=== PATIENT | female | born 1975 | race African-American/Black ===

== ENCOUNTER 2017-04-23 04:45 | Emergency (ER) | payer MEDICAID ==
[~2017-04-23] VITALS: Ht 170.2 cm; Wt 76.0 kg
[2017-04-23] VITALS (13 sets, daily range): BP systolic 142–166; BP diastolic 89–109
[~2017-04-23 04:45] MED LIST: AMLO10TA80 PO; CALCIUM ACETATE PO; DOCU-138 PO; FERR-63 PO; LORA10TA7 PO; METO-539 PO; NITR100C PO; SEVE800T8 PO
[2017-04-23 07:13] LABS: BASOPHILS % 0.6 % (0.0-2.0); HEMATOCRIT. 30.2 % (36.0-48.0); HEMOGLOBIN. 9.9 g/dL (12.0-16.0); LYMPHOCYTES % 40.6 % (20.0-50.0); MEAN CORPUSCULAR HEMOGLOBIN 29.6 pg (28.0-32.0); MEAN CORPUSCULAR VOLUME 90.4 fL (81.0-99.0); MEAN PLATELET VOLUME 8.5 fl (7.4-10.4); MONOCYTES % 8.3 % (2.0-8.0); NEUTROPHILS % 47.5 % (40.0-76.0); PLATELET 243 x1000/uL (130-400); RED BLOOD CELL COUNT 3.34 mill/uL (4.2-5.4); RED CELL DISTRIBUTION WIDTH 15.7 % (11.6-14.6)
[2017-04-23 07:17] LABS: PARTIAL THROMBOPLASTIN TIME 67.6 sec (23.4-31.0); PROTHROMBIN TIME 10.4 sec (9.4-11.6)
[2017-04-23] MEDS ORDERED: CEFAZOLIN 1000MG PREMIX 50 ML IV ONE (08:00)
[2017-04-23] MEDS ORDERED: FENTANYL CITRATE/PF 50MCG/ML 2ML VIAL ONE (09:06)
[2017-04-23] MEDS ORDERED: SODIUM BICARBONATE 4% (2.4MEQ) 5ML VIAL IV ONE (09:06)
[2017-04-23] MEDS ORDERED: FENTANYL CITRATE/PF 50MCG/ML 2ML VIAL IV SCH (09:45)
== END 2017-04-23 10:47 | disposition home or self-care (01) ==
LOC: ER 08:05
DX: T82.41XA Breakdown (mechanical) of vascular dialysis catheter, initial encounter (principal); I12.0 Hypertensive chronic kidney disease with stage 5 chronic kidney disease or end stage renal disease; N18.6 End stage renal disease; Z99.2 Dependence on renal dialysis; Y82.8 Other medical devices associated with adverse incidents; Y92.098 Other place in other non-institutional residence as the place of occurrence of the external cause
CPT/HCPCS: 36415; 36581; 71045; 77001; 80048; 81025; 85025; 85610; 85730; 86850; 86900; 86901; 93005; 96365; 96375; 99285; C1725; C1750; C1769; J0690; J1642; J3010; J3490; Z7610

== ENCOUNTER 2017-07-25 09:11 | Emergency (ER) | payer MEDICAID ==
[~2017-07-25] VITALS: Ht 170.2 cm; Wt 74.6 kg
[2017-07-25] MEDS ORDERED: HYDROCODONE/ACETAMINOPHEN 5/325MG TABLET PO ONE (10:15)
[2017-07-25 10:44] VITALS: BP 128/94
== END 2017-07-25 11:29 | disposition home or self-care (01) ==
LOC: ER 09:34
DX: L08.9 Local infection of the skin and subcutaneous tissue, unspecified (principal); I12.0 Hypertensive chronic kidney disease with stage 5 chronic kidney disease or end stage renal disease; N18.6 End stage renal disease; F17.200 Nicotine dependence, unspecified, uncomplicated; Z99.2 Dependence on renal dialysis
CPT/HCPCS: 73140; 99284; 99285

== ENCOUNTER 2017-08-24 09:10 | Emergency (ER) | payer MEDICAID ==
[~2017-08-24] VITALS: Ht 170.2 cm; Wt 76.0 kg
[2017-08-24] MEDS ORDERED: ACETAMINOPHEN WITH CODEINE 300/30MG TABLET PO STA (09:31)
[2017-08-24 09:53] LABS: BASOPHILS % 0.8 % (0.0-2.0); EOSINOPHILS % 1.9 % (0.0-5.0); HEMATOCRIT. 36.2 % (36.0-48.0); HEMOGLOBIN. 11.8 g/dL (12.0-16.0); LYMPHOCYTES % 36.4 % (20.0-50.0); MEAN CORPUSCULAR HEMOGLOBIN 28.4 pg (28.0-32.0); MEAN CORPUSCULAR VOLUME 86.9 fL (81.0-99.0); MEAN PLATELET VOLUME 7.7 fl (7.4-10.4); MONOCYTES % 7.5 % (2.0-8.0); NEUTROPHILS % 53.4 % (40.0-76.0); PLATELET 259 x1000/uL (130-400); RED BLOOD CELL COUNT 4.17 mill/uL (4.2-5.4); RED CELL DISTRIBUTION WIDTH 15.3 % (11.6-14.6)
[2017-08-24 09:58] LABS: CHLORIDE 99 mEq/L (98-107)
[2017-08-24 10:00] LABS: PROTHROMBIN TIME 10.4 sec (9.4-11.6)
[2017-08-24 10:30] VITALS: BP 144/85
== END 2017-08-24 10:42 | disposition home or self-care (01) ==
LOC: ER 09:10
DX: T82.49XA Other complication of vascular dialysis catheter, initial encounter (principal); I12.0 Hypertensive chronic kidney disease with stage 5 chronic kidney disease or end stage renal disease; N18.6 End stage renal disease; Z99.2 Dependence on renal dialysis; Z90.49 Acquired absence of other specified parts of digestive tract; Z98.890 Other specified postprocedural states; Y84.1 Kidney dialysis as the cause of abnormal reaction of the patient, or of later complication, without mention of misadventure at the time of the procedure; Y92.89 Other specified places as the place of occurrence of the external cause
CPT/HCPCS: 36415; 80053; 85025; 85610; 99284; Z7610

== ENCOUNTER 2017-09-21 09:44 | Emergency (ER) | payer MEDICAID ==
[~2017-09-21] VITALS: Ht 170.2 cm; Wt 76.0 kg
[~2017-09-21 09:44] MED LIST changes: -NITR100C PO
[2017-09-21] MEDS ORDERED: IBUPROFEN 600MG TABLET PO ONE (12:45)
[2017-09-21] MEDS ORDERED: ACETAMINOPHEN 500MG TABLET PO ONE (12:45)
[2017-09-21 13:52] VITALS: BP 149/89
== END 2017-09-21 14:07 | disposition home or self-care (01) ==
LOC: ER 12:01
DX: M25.561 Pain in right knee (principal); I12.0 Hypertensive chronic kidney disease with stage 5 chronic kidney disease or end stage renal disease; N18.6 End stage renal disease; Z99.2 Dependence on renal dialysis; Z87.828 Personal history of other (healed) physical injury and trauma; Z79.899 Other long term (current) drug therapy
CPT/HCPCS: 73562; 81025; 99284

== ENCOUNTER 2017-11-03 21:20 | Emergency (ER) | payer MEDICAID ==
[~2017-11-03] VITALS: Ht 170.2 cm; Wt 73.1 kg
[2017-11-04 01:26] VITALS: BP 139/89
== END 2017-11-04 01:28 | disposition home or self-care (01) ==
LOC: ER 21:20
DX: Z48.00 Encounter for change or removal of nonsurgical wound dressing (principal)
CPT/HCPCS: 99282

== ENCOUNTER 2018-01-30 09:16 | Inpatient (IN) | payer MEDICAID ==
[~2018-01-30] VITALS: Ht 177.8 cm; Wt 73.5 kg
[2018-01-30] MEDS ORDERED: HYDRALAZINE 20MG/ML VIAL IV ONE (10:45)
[2018-01-30 11:16] LABS: BASOPHILS % 0.5 % (0.0-2.0); EOSINOPHILS % 1.1 % (0.0-5.0); HEMOGLOBIN. 8.9 g/dL (12.0-16.0); LYMPHOCYTES % 31.5 % (20.0-50.0); MEAN CORPUSCULAR HEMOGLOBIN 29.3 pg (28.0-32.0); MEAN CORPUSCULAR VOLUME 88.9 fL (81.0-99.0); MEAN PLATELET VOLUME 8.2 fl (7.4-10.4); MONOCYTES % 9.1 % (2.0-8.0); NEUTROPHILS % 57.8 % (40.0-76.0); PLATELET 224 x1000/uL (130-400); RED BLOOD CELL COUNT 3.04 mill/uL (4.2-5.4); RED CELL DISTRIBUTION WIDTH 15.3 % (11.6-14.6)
[2018-01-30 11:22] LABS: CHLORIDE 98 mEq/L (98-107); PARTIAL THROMBOPLASTIN TIME 26.3 sec (23.4-31.0); PROTHROMBIN TIME 10.5 sec (9.1-11.1)
[2018-01-30 11:29] LABS: PHOSPHORUS 4.9 mg/dL (2.5-4.9)
[2018-01-30 14:38] VITALS: BP 167/108
[2018-01-30] MEDS ORDERED: DOCUSATE SODIUM 100MG CAPSULE PO PRN (15:00)
[2018-01-30] MEDS ORDERED: ACETAMINOPHEN 325MG TABLET PO PRN (15:00)
[2018-01-30] MEDS ORDERED: ONDANSETRON HCL 4MG/2ML INJ IV PRN (15:00)
[2018-01-30] MEDS ORDERED: HYDROCODONE/ACETAMINOPHEN 5/325MG TABLET PO PRN (15:00)
[2018-01-30] MEDS ORDERED: IPRATROPIUM/ALBUTEROL 0.5-3(2.5)MG/3ML NEB INH PRN (15:00)
[2018-01-30] MEDS ORDERED: CALC667C MT (15:23)
[2018-01-30 15:38] LABS: FOLIC ACID (FOLATE) SERUM >20 ng/mL ng/mL (>5.38)
[2018-01-30 15:42] LABS: FERRITIN 683 ng/mL (10-291)
[2018-01-30 15:50] LABS: VITAMIN B12 SERUM 909 pg/mL (211-911)
[2018-01-30 15:53] LABS: HEPATITIS B SURFACE ANTIGEN NEGATIVE
[2018-01-30 16:00] VITALS: BP 166/103
[2018-01-30 16:23] LABS: HEPATITIS A AB IGM NEGATIVE (NEGATIVE)
[2018-01-30 17:26] LABS: PHOSPHORUS 6.4 mg/dL (2.5-4.9)
[2018-01-30 20:00] VITALS: BP 143/87
[2018-01-31] VITALS: BP 151/91
[2018-01-31] MEDS: CLONIDINE 0.1MG TABLET PO PRN ×2 (01:02→13:33)
[2018-01-31 04:00] VITALS: BP 148/88
[2018-01-31 06:28] LABS: BASOPHILS % 0.9 % (0.0-2.0); EOSINOPHILS % 0.9 % (0.0-5.0); HEMOGLOBIN. 9.1 g/dL (12.0-16.0); LYMPHOCYTES % 37.6 % (20.0-50.0); MEAN CORPUSCULAR HEMOGLOBIN 30.2 pg (28.0-32.0); MEAN CORPUSCULAR VOLUME 89.8 fL (81.0-99.0); MEAN PLATELET VOLUME 8.8 fl (7.4-10.4); MONOCYTES % 10.9 % (2.0-8.0); NEUTROPHILS % 49.7 % (40.0-76.0); PLATELET 239 x1000/uL (130-400); RED BLOOD CELL COUNT 3.01 mill/uL (4.2-5.4); RED CELL DISTRIBUTION WIDTH 15.5 % (11.6-14.6)
[2018-01-31 08:00] VITALS: BP 141/92
[2018-01-31 12:00] VITALS: BP 186/98
[2018-01-31 14:58] VITALS: BP 167/81
== END 2018-01-31 16:00 | disposition home or self-care (01) | DRG 199 ==
LOC: ER 09:16 → EDBEDREQ 10:39 → 7WST 11:52 → EDBEDREQ 12:00 → ENRESERV 13:18
PROVIDERS: ADMIT Internal Medicine; ATTEND Internal Medicine
DX: I16.0 Hypertensive urgency (principal); N18.6 End stage renal disease; E83.39 Other disorders of phosphorus metabolism; I12.0 Hypertensive chronic kidney disease with stage 5 chronic kidney disease or end stage renal disease; D63.8 Anemia in other chronic diseases classified elsewhere; F12.90 Cannabis use, unspecified, uncomplicated; N25.81 Secondary hyperparathyroidism of renal origin; Z87.891 Personal history of nicotine dependence; Z91.19 Patient's noncompliance with other medical treatment and regimen; Z99.2 Dependence on renal dialysis; Z90.49 Acquired absence of other specified parts of digestive tract
CPT/HCPCS: 36415; 71045; 80048; 81025; 82607; 82728; 82746; 83540; 83550; 83735; 84100; 84484; 86705; 86709; 86803; 87340; 93005; 96374; 99291; J0360

== ENCOUNTER 2018-12-30 11:18 | Inpatient (IN) | payer MEDICAID ==
[~2018-12-30] VITALS: Ht 170.2 cm; Wt 70.8 kg
[~2018-12-30 11:18] MED LIST changes: +CALC667C MT; -CALCIUM ACETATE PO
[2018-12-30] MEDS ORDERED: ONDANSETRON HCL 4MG/2ML INJ IV STA (13:02)
[2018-12-30 14:11] LABS: BASOPHILS % 0.5 % (0.0-2.0); HEMATOCRIT. 29.4 % (36.0-48.0); HEMOGLOBIN. 9.7 g/dL (12.0-16.0); LYMPHOCYTES % 12.1 % (20.0-50.0); MEAN CORPUSCULAR HEMOGLOBIN 28.6 pg (28.0-32.0); MEAN PLATELET VOLUME 8.1 fl (7.4-10.4); MONOCYTES % 7.6 % (2.0-8.0); NEUTROPHILS % 79.8 % (40.0-76.0); PLATELET 184 x1000/uL (130-400); RED BLOOD CELL COUNT 3.38 mill/uL (4.2-5.4); RED CELL DISTRIBUTION WIDTH 17.1 % (11.6-14.6)
[2018-12-30 14:17] LABS: CHLORIDE 101 mEq/L (98-107); INR 1.1; PROTHROMBIN TIME 11.2 sec (9.6-11.0)
[2018-12-30 14:21] LABS: BG BASE EXCESS -9.5 mmol/L (-2.0-2.0); BG CARBOXYHEMOGLOBIN 0.3 % (0.5-1.5); BG DEOXYHEMOGLOBIN 4.6 % (0.0-5.0); BG FRACTION INSPIRED OXYGEN 21; BG HCO3 ACT 14.8 mmol/L (22.0-26.0); BG METHEMOGLOBIN 0.3 % (0.0-1.5); BG OXYGEN SATURATION 95.4 % (92.0-98.5); BG OXYHEMOGLOBIN 94.8 % (94.0-97.0); BG PCO2 27.7 mmHg (35.0-45.0); BG PH 7.347 (7.350-7.450); BG PO2 90.6 mmHg (75.0-100.0); BG SAMPLE SITE RIGHT RADIAL; BG TOTAL HEMOGLOBIN 10.6 g/dL (12.0-18.0); BG VENT MODE ROOM AIR
[2018-12-30] MEDS ORDERED: LABETALOL 5MG/ML SYR 20 MG/4 ML SYRINGE IV ONE (14:30)
[2018-12-30 14:34] LABS: HCG SCREEN NEGATIVE
[2018-12-30 14:59] LABS: PHOSPHORUS 8.8 mg/dL (2.5-4.9)
[2018-12-30] MEDS ORDERED: SODIUM BICARBONATE 8.4% 1 MEQ/ML 50ML SYR IV ONE (15:00)
[2018-12-30] MEDS ORDERED: CALCIUM CHLORIDE 1GM/10ML SYR IV ONE ×2 (15:00→15:21)
[2018-12-30] MEDS ORDERED: DEXTROSE 50% WATER 50ML SYRINGE IV ONE (15:00)
[2018-12-30] MEDS ORDERED: INSULIN REGULAR (HUMULIN R) 300UNITS/3ML IV ONE (15:00)
[2018-12-30] MEDS ORDERED: DOCUSATE SODIUM 100MG CAPSULE PO PRN (15:30)
[2018-12-30] MEDS ORDERED: GUAIFENESIN 200MG/10ML SUGAR FREE UDC PO PRN (15:30)
[2018-12-30] MEDS ORDERED: ACETAMINOPHEN 325MG TABLET PO PRN (15:30)
[2018-12-30] MEDS ORDERED: IPRATROPIUM/ALBUTEROL 0.5-3(2.5)MG/3ML NEB HHN PRN (15:30)
[2018-12-30] MEDS ORDERED: DIPHENHYDRAMINE 50MG/ML VIAL IV PRN (15:30)
[2018-12-30] MEDS ORDERED: HYDRALAZINE 20MG/ML VIAL IV PRN (18:30)
[2018-12-30 20:03] LABS: CLARITY URINE TURBID (CLEAR); COLOR URINE RED (YELLOW); KETONES URINE NEGATIVE (NEGATIVE); LEUKOCYTE ESTERASE URINE 1+ (NEGATIVE); NITRITE URINE NEGATIVE (NEGATIVE); OCCULT BLOOD URINE 3+ (NEGATIVE); PH URINE 7.5 (4.5-8.0); PROTEIN URINE 3+ (NEGATIVE); SPECIFIC GRAVITY URINE 1.012 (1.005-1.030); UROBILINOGEN URINE 0.2 E.U./dL (0.2-1.0)
[2018-12-30] MEDS ORDERED: HYDRALAZINE 20MG/ML VIAL IV NR (21:00)
[2018-12-30 21:55] VITALS: BP 178/92
[2018-12-30] MEDS ORDERED: DEXTROSE 50% WATER 50ML SYRINGE IV PRN (22:45)
[2018-12-31] MEDS: ONDANSETRON HCL 4MG/2ML INJ IV PRN ×2 (01:46→16:45)
[2018-12-31 04:00] VITALS: BP 192/110
[2018-12-31] MEDS ORDERED: DOXA4TAB3 PO (04:34)
[2018-12-31] MEDS: HYDRALAZINE 20MG/ML VIAL IV PRN ×2 (06:26→14:52)
[2018-12-31] MEDS: BLOOD SUGAR DIAGNOSTIC STRIP TEST SCH ×4 (07:40→20:28)
[2018-12-31 07:45] LABS: BASOPHILS % 0.2 % (0.0-2.0); HEMOGLOBIN. 9.6 g/dL (12.0-16.0); LYMPHOCYTES % 12.2 % (20.0-50.0); MEAN CORPUSCULAR HEMOGLOBIN 28.7 pg (28.0-32.0); MEAN CORPUSCULAR VOLUME 86.7 fL (81.0-99.0); MEAN PLATELET VOLUME 7.3 fl (7.4-10.4); NEUTROPHILS % 78.6 % (40.0-76.0); PLATELET 172 x1000/uL (130-400); RED BLOOD CELL COUNT 3.35 mill/uL (4.2-5.4); RED CELL DISTRIBUTION WIDTH 16.7 % (11.6-14.6)
[2018-12-31 08:00] VITALS: BP 180/100
[2018-12-31 08:02] LABS: CHLORIDE 105 mEq/L (98-107)
[2018-12-31] MEDS: INSULIN LISPRO 100 UNITS/ML SUBCUT SCH ×4 (08:10→20:28)
[2018-12-31 08:16] LABS: LDL CHOLESTEROL 70 mg/dL (5-100)
[2018-12-31 08:18] LABS: HDL CHOLESTEROL 35 mg/dL (40-59)
[2018-12-31] MEDS: PARICALCITOL 1 MCG CAPSULE PO SCH (09:12)
[2018-12-31] MEDS: CALCIUM ACETATE 667MG CAPSULE PO SCH ×4 (09:12→18:10)
[2018-12-31] MEDS: AMLODIPINE 10MG TABLET PO SCH (09:12)
[2018-12-31 12:00] VITALS: BP 181/101
[2018-12-31] MEDS: CEFTRIAXONE 1 G PREMIX 50 ML IV SCH (14:45)
[2018-12-31 16:39] VITALS: BP 170/94
[2018-12-31] MEDS ORDERED: CLONIDINE 0.2MG TABLET PO NR (18:00)
[2018-12-31] MEDS: FERROUS SULFATE 325MG TABLET PO SCH (18:09)
[2018-12-31] MEDS: SEVELAMER CARBONATE 800 MG TABLET PO SCH (18:09)
[2018-12-31 20:00] VITALS: BP 179/113
[2018-12-31] MEDS: DOXAZOSIN MESYLATE 4MG TABLET PO SCH ×2 (20:28→21:19)
[2018-12-31] MEDS: METOPROLOL TARTRATE 50MG TABLET PO SCH ×2 (20:29→20:44)
[2019-01-01 00:01] VITALS: BP 156/92
[2019-01-01 04:00] VITALS: BP 170/92
[2019-01-01] MEDS: HYDRALAZINE 20MG/ML VIAL IV PRN (05:14)
[2019-01-01] MEDS: BLOOD SUGAR DIAGNOSTIC STRIP TEST SCH ×4 (06:44→20:07)
[2019-01-01 08:00] VITALS: BP 172/95
[2019-01-01] MEDS: INSULIN LISPRO 100 UNITS/ML SUBCUT SCH ×4 (08:10→20:08)
[2019-01-01] MEDS: DOXAZOSIN MESYLATE 4MG TABLET PO SCH ×2 (09:37→20:08)
[2019-01-01] MEDS: PARICALCITOL 1 MCG CAPSULE PO SCH (09:37)
[2019-01-01] MEDS: FERROUS SULFATE 325MG TABLET PO SCH ×4 (09:38→18:50)
[2019-01-01] MEDS: LORATADINE 10MG TABLET PO SCH (09:38)
[2019-01-01] MEDS: AMLODIPINE 10MG TABLET PO SCH (09:38)
[2019-01-01] MEDS: METOPROLOL TARTRATE 50MG TABLET PO SCH ×2 (09:39→20:09)
[2019-01-01] MEDS: CALCIUM ACETATE 667MG CAPSULE PO SCH ×3 (09:39→18:49)
[2019-01-01] MEDS: CEFTRIAXONE 1 G PREMIX 50 ML IV SCH (09:43)
[2019-01-01] MEDS: SEVELAMER CARBONATE 800 MG TABLET PO SCH ×3 (09:43→18:49)
[2019-01-01 12:00] VITALS: BP 155/93
[2019-01-01] MEDS: CLONIDINE 0.1MG TABLET PO PRN (12:52)
[2019-01-01 17:19] VITALS: BP 183/93
[2019-01-02 00:53] VITALS: BP 144/72
[2019-01-02 04:00] VITALS: BP 156/68
[2019-01-02] MEDS: BLOOD SUGAR DIAGNOSTIC STRIP TEST SCH ×3 (06:40→17:44)
[2019-01-02 08:00] VITALS: BP 174/97
[2019-01-02 08:01] LABS: BASOPHILS % 0.4 % (0.0-2.0); EOSINOPHILS % 1.4 % (0.0-5.0); HEMATOCRIT. 24.8 % (36.0-48.0); HEMOGLOBIN. 8.2 g/dL (12.0-16.0); MEAN CORPUSCULAR HEMOGLOBIN 28.7 pg (28.0-32.0); MEAN CORPUSCULAR VOLUME 86.6 fL (81.0-99.0); MEAN PLATELET VOLUME 7.7 fl (7.4-10.4); MONOCYTES % 12.4 % (2.0-8.0); NEUTROPHILS % 54.8 % (40.0-76.0); PLATELET 137 x1000/uL (130-400); RED BLOOD CELL COUNT 2.87 mill/uL (4.2-5.4); RED CELL DISTRIBUTION WIDTH 16.9 % (11.6-14.6)
[2019-01-02] MEDS: INSULIN LISPRO 100 UNITS/ML SUBCUT SCH ×3 (08:10→17:49)
[2019-01-02] MEDS: DOXAZOSIN MESYLATE 4MG TABLET PO SCH (09:00)
[2019-01-02] MEDS: METOPROLOL TARTRATE 50MG TABLET PO SCH (09:00)
[2019-01-02] MEDS: AMLODIPINE 10MG TABLET PO SCH (09:00)
[2019-01-02] MEDS: CALCIUM ACETATE 667MG CAPSULE PO SCH ×3 (09:23→17:44)
[2019-01-02] MEDS: PARICALCITOL 1 MCG CAPSULE PO SCH (09:23)
[2019-01-02] MEDS: FERROUS SULFATE 325MG TABLET PO SCH ×3 (09:23→17:44)
[2019-01-02] MEDS: LORATADINE 10MG TABLET PO SCH (09:23)
[2019-01-02] MEDS: CEFTRIAXONE 1 G PREMIX 50 ML IV SCH (09:24)
[2019-01-02] MEDS: SEVELAMER CARBONATE 800 MG TABLET PO SCH ×3 (09:28→17:44)
[2019-01-02] MEDS: CLONIDINE 0.1MG TABLET PO PRN ×2 (10:52→17:46)
[2019-01-02 12:00] VITALS: BP 178/93
[2019-01-02 16:00] VITALS: BP 177/103
[2019-01-02 19:15] VITALS: BP 145/72
== END 2019-01-02 19:40 | disposition home or self-care (01) | DRG 425 ==
LOC: ER 11:18 → 7WST 14:47 → EDBEDREQTM 14:50 → EDBEDREQ 14:50 → ENRESERV 20:56 → 7WST 01-01 14:31
PROVIDERS: ADMIT Internal Medicine; ATTEND Internal Medicine
PROC: 5A1D70Z Performance of Urinary Filtration, Intermittent, Less than 6 Hours Per Day (ICD-10-PCS; principal; 2018-12-30)
PROC: 5A1D70Z Performance of Urinary Filtration, Intermittent, Less than 6 Hours Per Day (ICD-10-PCS; 2018-12-31)
PROC: 5A1D70Z Performance of Urinary Filtration, Intermittent, Less than 6 Hours Per Day (ICD-10-PCS; 2019-01-02)
DX: E87.5 Hyperkalemia (principal); I12.0 Hypertensive chronic kidney disease with stage 5 chronic kidney disease or end stage renal disease; E83.39 Other disorders of phosphorus metabolism; N18.6 End stage renal disease; I16.0 Hypertensive urgency; E83.42 Hypomagnesemia; D63.1 Anemia in chronic kidney disease; E87.70 Fluid overload, unspecified; N25.81 Secondary hyperparathyroidism of renal origin; K29.70 Gastritis, unspecified, without bleeding; N39.0 Urinary tract infection, site not specified; F12.90 Cannabis use, unspecified, uncomplicated; Z87.891 Personal history of nicotine dependence; Z91.15 Patient's noncompliance with renal dialysis; Z99.2 Dependence on renal dialysis; Z88.8 Allergy status to other drugs, medicaments and biological substances; Z79.899 Other long term (current) drug therapy; Z90.49 Acquired absence of other specified parts of digestive tract; Z98.891 History of uterine scar from previous surgery
CPT/HCPCS: 36415; 36600; 71045; 80048; 80061; 81003; 82375; 82805; 82962; 83735; 83970; 84100; 84443; 84484; 84703; 93005; 93970; 99291; J0360; J0696; J1815; J2405; J3490; J7620

== ENCOUNTER 2020-06-02 02:50 | Emergency (ER) | payer MEDICAID ==
[~2020-06-02 02:50] MED LIST changes: +DOXA4TAB3 PO
== END 2020-06-02 03:53 | disposition left against medical advice (07) ==
LOC: ER 02:50
DX: Z53.21 Procedure and treatment not carried out due to patient leaving prior to being seen by health care provider (principal); Z88.8 Allergy status to other drugs, medicaments and biological substances

== ENCOUNTER 2021-02-07 05:51 | Inpatient (IN) | payer MEDICAID ==
[~2021-02-07] VITALS: Ht 167.6 cm; Wt 77.1 kg
[2021-02-07 06:48] LABS: BASOPHILS % 0.8 % (0.0-2.0); EOSINOPHILS % 1.8 % (0.0-5.0); HEMATOCRIT. 26.8 % (36.0-48.0); HEMOGLOBIN. 8.5 g/dL (12.0-16.0); LYMPHOCYTES % 22.2 % (20.0-50.0); MEAN CORPUSCULAR HEMOGLOBIN 28.1 pg (28.0-32.0); MEAN CORPUSCULAR VOLUME 88.3 fL (81.0-99.0); MEAN PLATELET VOLUME 7.4 fl (7.4-10.4); MONOCYTES % 7.8 % (2.0-8.0); NEUTROPHILS % 67.4 % (40.0-76.0); PLATELET 196 x1000/uL (130-400); RED BLOOD CELL COUNT 3.04 mill/uL (4.2-5.4); RED CELL DISTRIBUTION WIDTH 19.5 % (11.6-14.6)
[2021-02-07 06:49] LABS: CHLORIDE 98 mEq/L (98-107)
[2021-02-07] MEDS ORDERED: MORPHINE SULFATE 2 MG/ML CPJ (NOT FOR IM USE) IV PRN (08:45)
[2021-02-07] MEDS ORDERED: DIPHENHYDRAMINE 50MG/ML VIAL IV PRN (08:45)
[2021-02-07] MEDS ORDERED: ONDANSETRON HCL 4MG/2ML INJ IV PRN (08:45)
[2021-02-07] MEDS ORDERED: IPRATROPIUM/ALBUTEROL 0.5-3(2.5)MG/3ML NEB HHN PRN (08:45)
[2021-02-07] MEDS ORDERED: NALOXONE HCL 0.4MG/ML VIAL IV PRN (09:15)
[2021-02-07] MEDS: HYDRALAZINE 20MG/ML VIAL IV PRN (10:51)
[2021-02-07 14:00] VITALS: BP 182/91
[2021-02-07 15:00] VITALS: BP 182/91
[2021-02-07] MEDS: CLONIDINE 0.1MG TABLET PO PRN (16:02)
[2021-02-07] MEDS: AMLODIPINE 10MG TABLET PO SCH (16:06)
[2021-02-07] MEDS ORDERED: PNEUMOCOCCAL 23-VAL P-SAC VAC 0.5 ML IM ONE (16:45)
[2021-02-07] MEDS ORDERED: FOLI0.8T23 MT (16:59)
[2021-02-07 17:00] VITALS: BP 166/85
[2021-02-07] MEDS ORDERED: FOLI-43 MT (17:03)
[2021-02-07 20:00] VITALS: BP 166/96
[2021-02-07] MEDS: METOPROLOL TARTRATE 50MG TABLET PO SCH (20:40)
[2021-02-07] MEDS: ACETAMINOPHEN 325MG TABLET PO PRN (20:48)
[2021-02-07 21:53] LABS: TOTAL IRON BINDING CAPACITY 150 ug/dL (250-450)
[2021-02-07 22:11] LABS: HEPATITIS B SURFACE ANTIGEN NEGATIVE
[2021-02-08] VITALS: BP 165/78
[2021-02-08] MEDS: CLONIDINE 0.1MG TABLET PO PRN (00:27)
[2021-02-08 04:00] VITALS: BP 166/82
[2021-02-08] MEDS: HYDRALAZINE 20MG/ML VIAL IV PRN (05:32)
[2021-02-08 06:02] LABS: BASOPHILS % 0.8 % (0.0-2.0); EOSINOPHILS % 1.5 % (0.0-5.0); HEMATOCRIT. 27.2 % (36.0-48.0); LYMPHOCYTES % 28.9 % (20.0-50.0); MEAN CORPUSCULAR HEMOGLOBIN 29.3 pg (28.0-32.0); MEAN CORPUSCULAR VOLUME 88.1 fL (81.0-99.0); MEAN PLATELET VOLUME 7.9 fl (7.4-10.4); MONOCYTES % 10.8 % (2.0-8.0); PLATELET 191 x1000/uL (130-400); RED BLOOD CELL COUNT 3.09 mill/uL (4.2-5.4); RED CELL DISTRIBUTION WIDTH 19.9 % (11.6-14.6)
[2021-02-08 06:07] LABS: CHLORIDE 101 mEq/L (98-107)
[2021-02-08 06:16] LABS: PHOSPHORUS 5.9 mg/dL (2.5-4.9)
[2021-02-08 08:00] VITALS: BP 152/79
[2021-02-08] MEDS: AMLODIPINE 10MG TABLET PO SCH (08:48)
[2021-02-08] MEDS: METOPROLOL TARTRATE 50MG TABLET PO SCH ×2 (08:49→21:59)
[2021-02-08 12:00] VITALS: BP 142/76
[2021-02-08] MEDS: DILTIAZEM HCL 90MG TABLET PO SCH ×2 (13:12→21:58)
[2021-02-08] MEDS: HYDRALAZINE HCL 50MG TABLET PO SCH ×2 (13:12→21:58)
[2021-02-08 16:00] VITALS: BP 120/63
[2021-02-08 20:00] VITALS: BP 137/76
[2021-02-08] MEDS: ACETAMINOPHEN 325MG TABLET PO PRN (22:39)
[2021-02-09] VITALS: BP 129/60
[2021-02-09 04:00] VITALS: BP 172/79
[2021-02-09] MEDS: HYDRALAZINE HCL 50MG TABLET PO SCH (05:57)
[2021-02-09] MEDS: DILTIAZEM HCL 90MG TABLET PO SCH (05:58)
[2021-02-09 06:30] LABS: BASOPHILS % 0.6 % (0.0-2.0); EOSINOPHILS % 1.2 % (0.0-5.0); HEMATOCRIT. 29.2 % (36.0-48.0); HEMOGLOBIN. 9.7 g/dL (12.0-16.0); LYMPHOCYTES % 24.1 % (20.0-50.0); MEAN CORPUSCULAR VOLUME 87.1 fL (81.0-99.0); MEAN PLATELET VOLUME 7.7 fl (7.4-10.4); MONOCYTES % 10.6 % (2.0-8.0); NEUTROPHILS % 63.5 % (40.0-76.0); PLATELET 187 x1000/uL (130-400); RED BLOOD CELL COUNT 3.35 mill/uL (4.2-5.4); RED CELL DISTRIBUTION WIDTH 19.8 % (11.6-14.6)
[2021-02-09 08:00] VITALS: BP 128/81
[2021-02-09] MEDS: METOPROLOL TARTRATE 50MG TABLET PO SCH (08:47)
[2021-02-09] MEDS ORDERED: DILTIAZEM HCL 120MG CAPSULE CD 24HR PO SCH (11:00)
[2021-02-09 12:00] VITALS: BP 153/85
[2021-02-09] MEDS ORDERED: HYDR-4135 PO (12:12)
[2021-02-09] MEDS ORDERED: DILT120C88 PO (12:12)
[2021-02-09 13:40] VITALS: BP 153/85
== END 2021-02-09 14:42 | disposition home or self-care (01) | DRG 199 ==
LOC: ER 05:51 → 8WST 08:21 → ENRESERV 13:17
PROVIDERS: ADMIT Internal Medicine; ATTEND Internal Medicine
PROC: 5A1D70Z Performance of Urinary Filtration, Intermittent, Less than 6 Hours Per Day (ICD-10-PCS; principal; 2021-02-09)
DX: I16.0 Hypertensive urgency (principal); I21.4 Non-ST elevation (NSTEMI) myocardial infarction; N18.6 End stage renal disease; D63.1 Anemia in chronic kidney disease; N25.81 Secondary hyperparathyroidism of renal origin; I50.9 Heart failure, unspecified; F41.9 Anxiety disorder, unspecified; I13.2 Hypertensive heart and chronic kidney disease with heart failure and with stage 5 chronic kidney disease, or end stage renal disease; Z99.2 Dependence on renal dialysis; Z91.19 Patient's noncompliance with other medical treatment and regimen; Z88.8 Allergy status to other drugs, medicaments and biological substances; Z79.899 Other long term (current) drug therapy; Q78.9 Osteochondrodysplasia, unspecified; Z90.49 Acquired absence of other specified parts of digestive tract; Z98.891 History of uterine scar from previous surgery
CPT/HCPCS: 36415; 71045; 80048; 80053; 83540; 83550; 83735; 83880; 84100; 84443; 84484; 85025; 86705; 86709; 86803; 87340; 90732; 93005; 93306; 93970; 93971; 99285; J0360; A4315

== ENCOUNTER 2021-07-25 10:04 | Inpatient (IN) | payer MEDICAID ==
[~2021-07-25] VITALS: Ht 170.2 cm; Wt 72.1 kg
[~2021-07-25 10:04] MED LIST changes: -AMLO10TA80 PO; +APIX5TAB MT; +DILT120C88 PO; -DOXA4TAB3 PO; +FOLI-43 MT; +FOLI0.8T23 MT; +HYDR-4135 PO; -LORA10TA7 PO; -SEVE800T8 PO
[2021-07-25] MEDS ORDERED: ONDANSETRON HCL 4MG/2ML INJ IV STA (10:42)
[2021-07-25] MEDS ORDERED: MORPHINE SULFATE 4 MG/ML CPJ (NOT FOR IM USE) IV STA (10:42)
[2021-07-25 10:56] LABS: BASOPHILS % 0.8 % (0.0-2.0); HEMATOCRIT. 27.8 % (36.0-48.0); HEMOGLOBIN. 8.8 g/dL (12.0-16.0); LYMPHOCYTES % 24.6 % (20.0-50.0); MEAN CORPUSCULAR HEMOGLOBIN 28.3 pg (28.0-32.0); MEAN CORPUSCULAR VOLUME 88.9 fL (81.0-99.0); MEAN PLATELET VOLUME 6.8 fl (7.4-10.4); MONOCYTES % 8.3 % (2.0-8.0); NEUTROPHILS % 65.3 % (40.0-76.0); PLATELET 176 x1000/uL (130-400); RED BLOOD CELL COUNT 3.12 mill/uL (4.2-5.4)
[2021-07-25 11:05] LABS: CHLORIDE 98 mEq/L (98-107)
[2021-07-25 11:07] LABS: HCG SCREEN NEGATIVE; PARTIAL THROMBOPLASTIN TIME 23.4 sec (23.4-31.0); PROTHROMBIN TIME 10.8 sec (9.6-11.0)
[2021-07-25 11:15] LABS: CLARITY URINE CLOUDY (CLEAR); COLOR URINE YELLOW (YELLOW); KETONES URINE NEGATIVE (NEGATIVE); LEUKOCYTE ESTERASE URINE NEGATIVE (NEGATIVE); NITRITE URINE NEGATIVE (NEGATIVE); OCCULT BLOOD URINE NEGATIVE (NEGATIVE); PH URINE 8.5 (4.5-8.0); PROTEIN URINE 2+ (NEGATIVE); SPECIFIC GRAVITY URINE 1.008 (1.005-1.030); UROBILINOGEN URINE 0.2 E.U./dL (0.2-1.0)
[2021-07-25] MEDS ORDERED: CLONIDINE 0.2MG TABLET PO ONE (11:15)
[2021-07-25] MEDS ORDERED: ASPIRIN 81MG TABLET PO ONE (12:30)
[2021-07-25] MEDS ORDERED: DIPHENHYDRAMINE 50MG/ML VIAL IV PRN (14:30)
[2021-07-25] MEDS ORDERED: IPRATROPIUM/ALBUTEROL 0.5-3(2.5)MG/3ML NEB HHN PRN (14:30)
[2021-07-25] MEDS ORDERED: ONDANSETRON HCL 4MG/2ML INJ IV PRN (14:30)
[2021-07-25] MEDS ORDERED: ACETAMINOPHEN 325MG TABLET PO PRN (14:30)
[2021-07-25] MEDS ORDERED: NALOXONE HCL 0.4MG/ML VIAL IV PRN (14:45)
[2021-07-25 16:30] VITALS: BP 154/78
[2021-07-25] MEDS: MORPHINE SULFATE 2 MG/ML CPJ (NOT FOR IM USE) IV PRN ×2 (17:08→21:44)
[2021-07-25] MEDS ORDERED: HYDROCODONE/ACETAMINOPHEN 5/325MG TABLET PO PRN (18:15)
[2021-07-25 20:00] VITALS: BP 144/73
[2021-07-26 00:01] VITALS: BP 165/96
[2021-07-26 04:00] VITALS: BP 153/77
[2021-07-26 07:22] LABS: BASOPHILS % 0.7 % (0.0-2.0); HEMATOCRIT. 23.9 % (36.0-48.0); HEMOGLOBIN. 7.7 g/dL (12.0-16.0); LYMPHOCYTES % 16.7 % (20.0-50.0); MEAN CORPUSCULAR HEMOGLOBIN 28.2 pg (28.0-32.0); MEAN CORPUSCULAR VOLUME 86.9 fL (81.0-99.0); MONOCYTES % 8.2 % (2.0-8.0); NEUTROPHILS % 73.4 % (40.0-76.0); PLATELET 174 x1000/uL (130-400); RED BLOOD CELL COUNT 2.75 mill/uL (4.2-5.4); RED CELL DISTRIBUTION WIDTH 20.4 % (11.6-14.6)
[2021-07-26 07:39] LABS: CHLORIDE 96 mEq/L (98-107)
[2021-07-26 07:46] LABS: GAMMA GLUTAMYL TRANSPEPTIDASE 35 IU/L (7-32); PHOSPHORUS 5.9 mg/dL (2.5-4.9)
[2021-07-26 08:00] VITALS: BP 160/90
[2021-07-26] MEDS: CINACALCET HCL 30MG TABLET PO SCH (09:12)
[2021-07-26] MEDS: CLONIDINE 0.1MG TABLET PO PRN ×2 (09:13→18:10)
[2021-07-26] MEDS: MORPHINE SULFATE 2 MG/ML CPJ (NOT FOR IM USE) IV PRN ×2 (09:14→18:11)
[2021-07-26 12:00] VITALS: BP 156/82
[2021-07-26] MEDS: SEVELAMER CARBONATE 800 MG TABLET PO SCH ×2 (14:02→18:10)
[2021-07-26 16:00] VITALS: BP 165/87
[2021-07-26] MEDS: FERROUS SULFATE 325MG TABLET PO SCH (18:10)
[2021-07-26 20:00] VITALS: BP 166/89
[2021-07-26] MEDS: METOPROLOL TARTRATE 50MG TABLET PO SCH (21:03)
[2021-07-26] MEDS: HYDRALAZINE HCL 100MG TABLET PO SCH (21:03)
[2021-07-27] VITALS (7 sets, daily range): BP systolic 139–187; BP diastolic 77–97
[2021-07-27 03:40] LABS: HEPATITIS B SURFACE ANTIGEN NEGATIVE
[2021-07-27 07:10] LABS: LUTEINIZING HORMONE <0.3 mIU/mL (.); THYROID PEROXIDASE ANTIBODY < 8 IU/mL (0-34); VITAMIN D 25-OH 15.2 ng/mL (30.0-100.0)
[2021-07-27 07:36] LABS: BASOPHILS % 0.6 % (0.0-2.0); HEMATOCRIT. 23.6 % (36.0-48.0); HEMOGLOBIN. 7.7 g/dL (12.0-16.0); LYMPHOCYTES % 24.9 % (20.0-50.0); MEAN CORPUSCULAR HEMOGLOBIN 28.4 pg (28.0-32.0); MEAN CORPUSCULAR VOLUME 87.3 fL (81.0-99.0); MONOCYTES % 10.5 % (2.0-8.0); PLATELET 167 x1000/uL (130-400); RED CELL DISTRIBUTION WIDTH 20.5 % (11.6-14.6)
[2021-07-27] MEDS: FERROUS SULFATE 325MG TABLET PO SCH ×2 (08:50→18:10)
[2021-07-27] MEDS: CINACALCET HCL 30MG TABLET PO SCH (08:50)
[2021-07-27] MEDS: SEVELAMER CARBONATE 800 MG TABLET PO SCH ×3 (08:50→18:10)
[2021-07-27] MEDS: FOLIC ACID/VITAMIN B COMP W-C TABLET PO SCH (08:51)
[2021-07-27] MEDS: DOXERCALCIFEROL 0.5MCG CAPSULE PO SCH (08:52)
[2021-07-27] MEDS: HYDRALAZINE HCL 100MG TABLET PO SCH ×2 (09:00→22:01)
[2021-07-27] MEDS: MORPHINE SULFATE 2 MG/ML CPJ (NOT FOR IM USE) IV PRN ×2 (09:00→22:02)
[2021-07-27] MEDS: DILTIAZEM HCL 180MG CAPSULE CD 24HR PO SCH (09:00)
[2021-07-27] MEDS: METOPROLOL TARTRATE 50MG TABLET PO SCH ×2 (09:00→22:00)
[2021-07-27 09:10] LABS: A/G RATIO 1.9 (0.7-1.7); ALBUMIN 3.7 g/dL (2.9-4.4); ALPHA-1-GLOBULIN 0.2 g/dL (0.0-0.4); ALPHA-2-GLOBULIN 0.5 g/dL (0.4-1.0); ANTI-THYROGLOBULIN AB < 1 IU/mL (0.0-0.9); BETA GLOBULIN 0.5 g/dL (0.7-1.3); FOLICLE STIMULATING HORMONE < 0.3 mIU/mL (.); GAMMA GLOBULINS 0.7 g/dL (0.4-1.8); IMMUNOGLOBULIN A 74 mg/dL (87-352); IMMUNOGLOBULIN G 789 mg/dL (586-1602); IMMUNOGLOBULIN M 27 mg/dL (26-217); KAPPA/LAMBDA RATIO 2.24 (0.26-1.65); M-SPIKE 0.4 g/dL (Not Observed); TOTAL PROTEIN SERUM 5.7 g/dL (6.0-8.5)
[2021-07-27] MEDS: CLONIDINE 0.1MG TABLET PO PRN (17:01)
[2021-07-27] MEDS ORDERED: EPOETIN ALFA 3000UNITS/ML VIAL SUBCUT SCH (21:00)
[2021-07-28 00:20] VITALS: BP 157/80
[2021-07-28 04:00] VITALS: BP 161/80
[2021-07-28] MEDS: CLONIDINE 0.1MG TABLET PO PRN (06:51)
[2021-07-28] MEDS ORDERED: IOHEXOL-300 100 ML BOTTLE ONE (07:01)
[2021-07-28] MEDS ORDERED: LIDOCAINE HCL 1% 10 MG/ML 10ML VIAL ONE (07:01)
[2021-07-28] MEDS ORDERED: HEPARIN 1000 UNITS/ML 10ML ONE (07:01)
[2021-07-28] MEDS ORDERED: FENTANYL CITRATE/PF 50MCG/ML 2ML VIAL ONE (07:58)
[2021-07-28 08:00] VITALS: BP 175/82
[2021-07-28] MEDS ORDERED: FENTANYL CITRATE/PF 50MCG/ML 2ML VIAL IV ONE (09:00)
[2021-07-28] MEDS: FOLIC ACID/VITAMIN B COMP W-C TABLET PO SCH (09:45)
[2021-07-28] MEDS: DOXERCALCIFEROL 0.5MCG CAPSULE PO SCH (09:45)
[2021-07-28] MEDS: DILTIAZEM HCL 180MG CAPSULE CD 24HR PO SCH (09:46)
[2021-07-28] MEDS: METOPROLOL TARTRATE 50MG TABLET PO SCH ×2 (09:46→21:26)
[2021-07-28] MEDS: HYDRALAZINE HCL 100MG TABLET PO SCH ×3 (09:46→21:26)
[2021-07-28] MEDS: CINACALCET HCL 30MG TABLET PO SCH (09:47)
[2021-07-28] MEDS: FERROUS SULFATE 325MG TABLET PO SCH ×2 (09:49→19:46)
[2021-07-28] MEDS: SEVELAMER CARBONATE 800 MG TABLET PO SCH ×3 (09:49→19:46)
[2021-07-28] MEDS: MORPHINE SULFATE 2 MG/ML CPJ (NOT FOR IM USE) IV PRN (10:06)
[2021-07-28 12:00] VITALS: BP 147/82
[2021-07-28] MEDS: POLYETHYLENE GLYCOL 3350 (17GM) 1 DOSE PACK PO SCH (12:17)
[2021-07-28] MEDS ORDERED: FENTANYL CITRATE/PF 50MCG/ML 2ML VIAL IV NR (13:00)
[2021-07-28 16:00] VITALS: BP 131/78
[2021-07-28] MEDS: APIXABAN 5 MG TABLET PO SCH (19:46)
[2021-07-28 20:00] VITALS: BP 146/83
[2021-07-29] VITALS: BP 143/71
[2021-07-29] MEDS: HYDRALAZINE HCL 100MG TABLET PO SCH ×2 (05:45→13:19)
[2021-07-29 07:59] LABS: BASOPHILS % 0.7 % (0.0-2.0); HEMATOCRIT. 25.6 % (36.0-48.0); HEMOGLOBIN. 8.3 g/dL (12.0-16.0); LYMPHOCYTES % 18.9 % (20.0-50.0); MEAN CORPUSCULAR HEMOGLOBIN 28.2 pg (28.0-32.0); MEAN CORPUSCULAR VOLUME 87.1 fL (81.0-99.0); MEAN PLATELET VOLUME 7.3 fl (7.4-10.4); MONOCYTES % 12.5 % (2.0-8.0); NEUTROPHILS % 66.9 % (40.0-76.0); PLATELET 155 x1000/uL (130-400); RED BLOOD CELL COUNT 2.94 mill/uL (4.2-5.4); RED CELL DISTRIBUTION WIDTH 19.7 % (11.6-14.6)
[2021-07-29 08:10] VITALS: BP 131/67
[2021-07-29] MEDS: FERROUS SULFATE 325MG TABLET PO SCH (08:29)
[2021-07-29] MEDS: FOLIC ACID/VITAMIN B COMP W-C TABLET PO SCH (08:29)
[2021-07-29] MEDS: APIXABAN 5 MG TABLET PO SCH (08:29)
[2021-07-29] MEDS: POLYETHYLENE GLYCOL 3350 (17GM) 1 DOSE PACK PO SCH (08:30)
[2021-07-29] MEDS: METOPROLOL TARTRATE 50MG TABLET PO SCH (08:30)
[2021-07-29] MEDS: SEVELAMER CARBONATE 800 MG TABLET PO SCH ×2 (08:31→13:18)
[2021-07-29] MEDS: CINACALCET HCL 30MG TABLET PO SCH (08:31)
[2021-07-29] MEDS: DOXERCALCIFEROL 0.5MCG CAPSULE PO SCH (08:34)
[2021-07-29] MEDS: DILTIAZEM HCL 180MG CAPSULE CD 24HR PO SCH (08:35)
[2021-07-29] MEDS: MORPHINE SULFATE 2 MG/ML CPJ (NOT FOR IM USE) IV PRN (08:46)
[2021-07-29 12:00] VITALS: BP 146/70
[2021-07-29] MEDS ORDERED: HYDR100T26 PO (13:18)
[2021-07-29] MEDS ORDERED: SEVE800T8 PO (13:18)
[2021-07-29] MEDS ORDERED: METO-539 PO (13:18)
[2021-07-29] MEDS ORDERED: CINA30 PO (13:18)
[2021-07-29] MEDS ORDERED: [UNRECOGNIZED DRUG - CODE] MT (13:18)
[2021-07-29 14:52] VITALS: BP 142/70
== END 2021-07-29 17:15 | disposition home or self-care (01) | DRG 182 ==
LOC: ER 10:12 → 7WST 13:30 → EDBEDREQTM 13:33 → EDBEDREQ 13:33 → ENRESERV 15:22
PROVIDERS: ADMIT Internal Medicine; ATTEND Internal Medicine
PROC: 5A1D70Z Performance of Urinary Filtration, Intermittent, Less than 6 Hours Per Day (ICD-10-PCS; 2021-07-26)
PROC: 027V3ZZ Dilation of Superior Vena Cava, Percutaneous Approach (ICD-10-PCS; principal; 2021-07-28)
PROC: B51W1ZZ Fluoroscopy of Dialysis Shunt/Fistula using Low Osmolar Contrast (ICD-10-PCS; 2021-07-28)
PROC: 5A1D70Z Performance of Urinary Filtration, Intermittent, Less than 6 Hours Per Day (ICD-10-PCS; 2021-07-28)
PROC: B5181ZZ Fluoroscopy of Superior Vena Cava using Low Osmolar Contrast (ICD-10-PCS; 2021-07-28)
DX: I82.290 Acute embolism and thrombosis of other thoracic veins (principal); G95.89 Other specified diseases of spinal cord; E27.8 Other specified disorders of adrenal gland; G82.20 Paraplegia, unspecified; I82.B11 Acute embolism and thrombosis of right subclavian vein; I13.11 Hypertensive heart and chronic kidney disease without heart failure, with stage 5 chronic kidney disease, or end stage renal disease; L89.159 Pressure ulcer of sacral region, unspecified stage; D63.1 Anemia in chronic kidney disease; I50.30 Unspecified diastolic (congestive) heart failure; I82.B12 Acute embolism and thrombosis of left subclavian vein; I87.1 Compression of vein; M94.8X8 Other specified disorders of cartilage, other site; N18.6 End stage renal disease; M53.3 Sacrococcygeal disorders, not elsewhere classified; N25.81 Secondary hyperparathyroidism of renal origin; M79.604 Pain in right leg; E04.1 Nontoxic single thyroid nodule; E05.90 Thyrotoxicosis, unspecified without thyrotoxic crisis or storm; N28.1 Cyst of kidney, acquired; R77.8 Other specified abnormalities of plasma proteins; E21.3 Hyperparathyroidism, unspecified; D47.2 Monoclonal gammopathy; E55.9 Vitamin D deficiency, unspecified; F17.210 Nicotine dependence, cigarettes, uncomplicated; D72.819 Decreased white blood cell count, unspecified; Z99.2 Dependence on renal dialysis; M19.90 Unspecified osteoarthritis, unspecified site; Z80.8 Family history of malignant neoplasm of other organs or systems; Z82.49 Family history of ischemic heart disease and other diseases of the circulatory system; Z83.3 Family history of diabetes mellitus; Z86.718 Personal history of other venous thrombosis and embolism; Z90.49 Acquired absence of other specified parts of digestive tract; Z91.09 Other allergy status, other than to drugs and biological substances; Z91.15 Patient's noncompliance with renal dialysis; Y83.2 Surgical operation with anastomosis, bypass or graft as the cause of abnormal reaction of the patient, or of later complication, without mention of misadventure at the time of the procedure; Y92.89 Other specified places as the place of occurrence of the external cause; M85.88 Other specified disorders of bone density and structure, other site
CPT/HCPCS: 36415; 36905; 71045; 72100; 74176; 80048; 80053; 81003; 82024; 82306; 82330; 82533; 82728; 82784; 82977; 83001; 83002; 83540; 83550; 83735; 83880; 83883; 83970; 84100; 84155; 84165; 84439; 84443; 84484; 84703; 85025; 86200; 86334; 86376; 86705; 86709; 86800; 86803; 87077; 87340; 93005; 93970; 99152; 99153; 99285; C1725; C1766; C1769; J1200; J1644; J2270; J2405; J3010; J3490; Q9967; G0500

== ENCOUNTER 2021-08-02 11:56 | Emergency (ER) | payer MEDICAID ==
[~2021-08-02] VITALS: Ht 157.5 cm; Wt 77.0 kg
[~2021-08-02 11:56] MED LIST changes: +CINA30 PO; -FOLI0.8T23 MT; -HYDR-4135 PO; +HYDR100T26 PO; +SEVE800T8 PO; +[UNRECOGNIZED DRUG - CODE] MT
[2021-08-02 12:12] VITALS: BP 186/85
[2021-08-02 12:55] LABS: BASOPHILS % 0.9 % (0.0-2.0); EOSINOPHILS % 0.6 % (0.0-5.0); HEMOGLOBIN. 8.2 g/dL (12.0-16.0); LYMPHOCYTES % 24.1 % (20.0-50.0); MEAN CORPUSCULAR HEMOGLOBIN 30.1 pg (28.0-32.0); MEAN PLATELET VOLUME 7.6 fl (7.4-10.4); MONOCYTES % 11.2 % (2.0-8.0); NEUTROPHILS % 63.2 % (40.0-76.0); PLATELET 214 x1000/uL (130-400); RED BLOOD CELL COUNT 2.73 mill/uL (4.2-5.4); RED CELL DISTRIBUTION WIDTH 20.2 % (11.6-14.6)
[2021-08-02 13:04] LABS: CHLORIDE 100 mEq/L (98-107)
== END 2021-08-02 16:49 | disposition left against medical advice (07) ==
LOC: ER 13:00
DX: Z02.79 Encounter for issue of other medical certificate (principal); I12.0 Hypertensive chronic kidney disease with stage 5 chronic kidney disease or end stage renal disease; N18.6 End stage renal disease; Z99.2 Dependence on renal dialysis; Z88.8 Allergy status to other drugs, medicaments and biological substances
CPT/HCPCS: 36415; 80053; 85025; 99283

== ENCOUNTER 2021-08-26 13:31 | Inpatient (IN) | payer MEDICAID ==
[~2021-08-26] VITALS: Ht 170.2 cm; Wt 70.1 kg
[2021-08-26 14:35] LABS: BASOPHILS % 0.7 % (0.0-2.0); EOSINOPHILS % 0.9 % (0.0-5.0); HEMATOCRIT. 21.3 % (36.0-48.0); HEMOGLOBIN. 7.3 g/dL (12.0-16.0); LYMPHOCYTES % 13.7 % (20.0-50.0); MEAN CORPUSCULAR HEMOGLOBIN 32.1 pg (28.0-32.0); MEAN CORPUSCULAR VOLUME 94.5 fL (81.0-99.0); MEAN PLATELET VOLUME 8.8 fl (7.4-10.4); MONOCYTES % 9.4 % (2.0-8.0); NEUTROPHILS % 75.3 % (40.0-76.0); PLATELET 236 x1000/uL (130-400); RED BLOOD CELL COUNT 2.26 mill/uL (4.2-5.4); RED CELL DISTRIBUTION WIDTH 18.8 % (11.6-14.6)
[2021-08-26 14:44] LABS: CHLORIDE 100 mEq/L (98-107)
[2021-08-26 15:05] LABS: BG CARBOXYHEMOGLOBIN 0.8 % (0.5-1.5); BG DEOXYHEMOGLOBIN 4.8 % (0.0-5.0); BG FRACTION INSPIRED OXYGEN 21; BG HCO3 ACT 26.5 mmol/L (22.0-26.0); BG METHEMOGLOBIN 0.4 % (0.0-1.5); BG OXYGEN SATURATION 95.1 % (92.0-98.5); BG PCO2 40.6 mmHg (35.0-45.0); BG PH 7.432 (7.350-7.450); BG PO2 82.6 mmHg (75.0-100.0); BG SAMPLE SITE RIGHT RADIAL; BG TOTAL HEMOGLOBIN 7.6 g/dL (12.0-18.0); BG VENT MODE ROOM AIR
[2021-08-26 19:03] LABS: HCG SCREEN NEGATIVE
[2021-08-26] MEDS: AMLODIPINE 10MG TABLET PO SCH (20:14)
[2021-08-26] MEDS ORDERED: LACTULOSE 20G/30ML UDC PO PRN (21:00)
[2021-08-26] MEDS: HYDROCODONE/ACETAMINOPHEN 5/325MG TABLET PO PRN (22:02)
[2021-08-27] MEDS: HYDROCODONE/ACETAMINOPHEN 5/325MG TABLET PO PRN ×4 (03:45→21:15)
[2021-08-27 07:38] LABS: MEAN CORPUSCULAR HEMOGLOBIN 30.1 pg (28.0-32.0); MEAN CORPUSCULAR VOLUME 93.7 fL (81.0-99.0); MEAN PLATELET VOLUME 8.6 fl (7.4-10.4); PLATELET 188 x1000/uL (130-400); RED BLOOD CELL COUNT 1.98 mill/uL (4.2-5.4); RED CELL DISTRIBUTION WIDTH 18.6 % (11.6-14.6)
[2021-08-27 07:50] LABS: HEMATOCRIT. 18.6 % (36.0-48.0)
[2021-08-27 08:00] VITALS: BP 172/90
[2021-08-27] MEDS ORDERED: ONDANSETRON HCL 4MG/2ML INJ IV PRN (08:30)
[2021-08-27 08:49] LABS: PLATELET ESTIMATE NORMAL
[2021-08-27] MEDS: AMLODIPINE 10MG TABLET PO SCH (09:00)
[2021-08-27] MEDS ORDERED: NALOXONE HCL 0.4MG/ML VIAL IV PRN (09:15)
[2021-08-27] MEDS: HYDRALAZINE HCL 100MG TABLET PO SCH ×2 (09:19→23:35)
[2021-08-27] MEDS: GUAIFENESIN 600MG ER TABLET PO SCH ×2 (10:50→23:34)
[2021-08-27] MEDS ORDERED: EPOETIN ALFA 10000UNITS/ML VIAL SUBCUT NR (14:39)
[2021-08-27 15:00] VITALS: BP 172/90
[2021-08-27] MEDS: CLONIDINE 0.1MG TABLET PO PRN (15:51)
[2021-08-27 16:17] VITALS: BP 172/90
[2021-08-27 16:41] LABS: HEPATITIS B SURFACE ANTIGEN NEGATIVE
[2021-08-27 20:00] VITALS: BP 135/99
[2021-08-28] VITALS (10 sets, daily range): BP systolic 127–189; BP diastolic 79–97
[2021-08-28] MEDS: CLONIDINE 0.1MG TABLET PO PRN ×2 (04:59→12:34)
[2021-08-28 07:27] LABS: MEAN CORPUSCULAR HEMOGLOBIN 30.9 pg (28.0-32.0); MEAN CORPUSCULAR VOLUME 90.6 fL (81.0-99.0); MEAN PLATELET VOLUME 8.5 fl (7.4-10.4); PLATELET 172 x1000/uL (130-400); RED BLOOD CELL COUNT 2.25 mill/uL (4.2-5.4); RED CELL DISTRIBUTION WIDTH 18.7 % (11.6-14.6)
[2021-08-28 07:46] LABS: HEMATOCRIT. 20.4 % (36.0-48.0); HEMOGLOBIN. 6.9 g/dL (12.0-16.0)
[2021-08-28] MEDS: AMLODIPINE 10MG TABLET PO SCH (08:32)
[2021-08-28] MEDS: HYDRALAZINE HCL 100MG TABLET PO SCH ×2 (08:32→20:44)
[2021-08-28] MEDS: GUAIFENESIN 600MG ER TABLET PO SCH ×2 (08:32→20:45)
[2021-08-28] MEDS: HYDROCODONE/ACETAMINOPHEN 5/325MG TABLET PO PRN ×2 (09:32→20:45)
[2021-08-28 13:43] LABS: PLATELET ESTIMATE NORMAL
[2021-08-28 18:23] LABS: HEMATOCRIT 22.9 % (36.0-48.0); HEMOGLOBIN 7.5 g/dL (12.0-16.0)
[2021-08-28 18:41] LABS: INR 1.1; PROTHROMBIN TIME 11.5 sec (9.6-11.0)
[2021-08-29] VITALS (9 sets, daily range): BP systolic 153–188; BP diastolic 71–98
[2021-08-29] MEDS: CLONIDINE 0.1MG TABLET PO PRN ×2 (00:41→16:50)
[2021-08-29] MEDS: AMLODIPINE 10MG TABLET PO SCH (09:00)
[2021-08-29] MEDS: HYDRALAZINE HCL 100MG TABLET PO SCH ×2 (09:00→21:04)
[2021-08-29] MEDS: GUAIFENESIN 600MG ER TABLET PO SCH ×2 (09:04→21:04)
[2021-08-29] MEDS: HYDROCODONE/ACETAMINOPHEN 5/325MG TABLET PO PRN (16:50)
[2021-08-29] MEDS: CARBAMIDE PEROXIDE 6.5% OTIC SOLN 15ML EACH EAR SCH (16:53)
[2021-08-29] MEDS ORDERED: EPOETIN ALFA-EPBX 10,000 UNIT/ML VIAL SUBCUT NR (21:00)
[2021-08-29 21:44] LABS: HEMATOCRIT 25.2 % (36.0-48.0); HEMOGLOBIN 8.3 g/dL (12.0-16.0)
[2021-08-30] VITALS: BP 177/88
[2021-08-30] MEDS: CLONIDINE 0.1MG TABLET PO PRN ×3 (00:01→14:17)
[2021-08-30] MEDS: HYDROCODONE/ACETAMINOPHEN 5/325MG TABLET PO PRN (00:02)
[2021-08-30 06:22] VITALS: BP 183/89
[2021-08-30 07:57] VITALS: BP 167/93
[2021-08-30] MEDS: HYDRALAZINE HCL 100MG TABLET PO SCH (08:38)
[2021-08-30] MEDS: AMLODIPINE 10MG TABLET PO SCH (08:39)
[2021-08-30] MEDS: GUAIFENESIN 600MG ER TABLET PO SCH (08:39)
[2021-08-30] MEDS: CARBAMIDE PEROXIDE 6.5% OTIC SOLN 15ML EACH EAR SCH ×2 (08:40→16:41)
[2021-08-30 12:22] VITALS: BP 160/86
[2021-08-30] MEDS ORDERED: HYDR-4001 MT (14:54)
[2021-08-30 15:15] VITALS: BP 147/80
[2021-08-30 15:42] VITALS: BP 147/80
== END 2021-08-30 18:35 | disposition home or self-care (01) | DRG 663 ==
LOC: ER 15:08 → MICUSO 16:01 → EDBEDREQSVC 16:49 → EDBEDREQTM 16:49 → EDBEDREQ 16:49 → EDBEDREQSVC 08-27 08:55 → 6WST 08-27 14:50
PROVIDERS: ADMIT Internal Medicine; ATTEND Internal Medicine
PROC: 5A1D70Z Performance of Urinary Filtration, Intermittent, Less than 6 Hours Per Day (ICD-10-PCS; 2021-08-27)
PROC: 30233N1 Transfusion of Nonautologous Red Blood Cells into Peripheral Vein, Percutaneous Approach (ICD-10-PCS; principal; 2021-08-29)
PROC: 5A1D70Z Performance of Urinary Filtration, Intermittent, Less than 6 Hours Per Day (ICD-10-PCS; 2021-08-29)
DX: D64.9 Anemia, unspecified (principal); I12.0 Hypertensive chronic kidney disease with stage 5 chronic kidney disease or end stage renal disease; I43 Cardiomyopathy in diseases classified elsewhere; N18.6 End stage renal disease; N25.81 Secondary hyperparathyroidism of renal origin; D72.819 Decreased white blood cell count, unspecified; F12.90 Cannabis use, unspecified, uncomplicated; N25.0 Renal osteodystrophy; Z99.2 Dependence on renal dialysis; Z79.01 Long term (current) use of anticoagulants; Z82.49 Family history of ischemic heart disease and other diseases of the circulatory system; Z86.718 Personal history of other venous thrombosis and embolism; Z91.15 Patient's noncompliance with renal dialysis; Z98.891 History of uterine scar from previous surgery; Z88.8 Allergy status to other drugs, medicaments and biological substances
CPT/HCPCS: 36415; 36600; 71045; 80048; 80053; 82375; 82805; 84703; 85014; 85018; 85025; 85049; 86705; 86709; 86803; 86850; 86900; 86920; 87340; 93005; 93970; 99285; J0885; P9016

== ENCOUNTER 2022-01-07 17:10 | Inpatient (IN) | payer MEDICAID ==
[~2022-01-07] VITALS: Ht 165.1 cm; Wt 88.1 kg
[~2022-01-07 17:10] MED LIST changes: +HYDR-4001 MT
[2022-01-07 20:59] LABS: BASOPHILS % 0.9 % (0.0-2.0); HEMATOCRIT. 30.7 % (36.0-48.0); HEMOGLOBIN. 9.8 g/dL (12.0-16.0); LYMPHOCYTES % 15.6 % (20.0-50.0); MEAN CORPUSCULAR VOLUME 93.8 fL (81.0-99.0); MEAN PLATELET VOLUME 9.3 fl (7.4-10.4); MONOCYTES % 7.8 % (2.0-8.0); NEUTROPHILS % 75.7 % (40.0-76.0); PLATELET 196 x1000/uL (130-400); RED BLOOD CELL COUNT 3.27 mill/uL (4.2-5.4)
[2022-01-07 21:09] LABS: CHLORIDE 99 mEq/L (98-107)
[2022-01-07 21:10] LABS: INR 1.3; PROTHROMBIN TIME 14.1 sec (9.6-11.0)
[2022-01-07] MEDS ORDERED: CALCIUM GLUCONATE 1,000 MG in DEXT 5% WATER 100 ML IV ONE (23:00)
[2022-01-07] MEDS: ALBUTEROL (0.083%) 2.5MG/3ML NEB HHN SCH ×2 (23:00→23:30)
[2022-01-07] MEDS ORDERED: DEXTROSE 50% WATER 50ML SYRINGE IV ONE (23:15)
[2022-01-07] MEDS ORDERED: SODIUM BICARBONATE 8.4% 1 MEQ/ML 50ML SYR IV NR (23:15)
[2022-01-07] MEDS ORDERED: INSULIN REGULAR (HUMULIN R) 300UNITS/3ML VIAL IV ONE (23:15)
[2022-01-07 23:38] LABS: CHLORIDE 99 mEq/L (98-107)
[2022-01-08] VITALS (14 sets, daily range): BP systolic 145–196; BP diastolic 74–123
[2022-01-08 01:35] LABS: HEPATITIS B SURFACE AB 27.9 mIU/mL
[2022-01-08 01:46] LABS: HEPATITIS B SURFACE ANTIGEN NEGATIVE
[2022-01-08] MEDS ORDERED: CLONIDINE 0.2MG TABLET PO NR (07:00)
[2022-01-08] MEDS ORDERED: ACETAMINOPHEN 325MG TABLET PO PRN (08:15)
[2022-01-08] MEDS ORDERED: ONDANSETRON HCL 4MG/2ML INJ IV PRN (08:15)
[2022-01-08] MEDS ORDERED: HYDRALAZINE HCL 100MG TABLET PO NR (08:15)
[2022-01-08] MEDS: AMLODIPINE 10MG TABLET PO SCH ×2 (09:00→11:54)
[2022-01-08 11:13] LABS: BASOPHILS % 0.3 % (0.0-2.0); EOSINOPHILS % 0.1 % (0.0-5.0); HEMATOCRIT. 27.8 % (36.0-48.0); HEMOGLOBIN. 9.1 g/dL (12.0-16.0); LYMPHOCYTES % 13.6 % (20.0-50.0); MEAN CORPUSCULAR HEMOGLOBIN 30.6 pg (28.0-32.0); MEAN CORPUSCULAR VOLUME 93.1 fL (81.0-99.0); MEAN PLATELET VOLUME 7.9 fl (7.4-10.4); MONOCYTES % 9.8 % (2.0-8.0); NEUTROPHILS % 76.2 % (40.0-76.0); PLATELET 194 x1000/uL (130-400); RED BLOOD CELL COUNT 2.99 mill/uL (4.2-5.4); RED CELL DISTRIBUTION WIDTH 18.4 % (11.6-14.6)
[2022-01-08] MEDS ORDERED: AMLODIPINE 10MG TABLET PO ONE (11:15)
[2022-01-08] MEDS ORDERED: NALOXONE HCL 0.4MG/ML VIAL IV PRN (11:30)
[2022-01-08] MEDS: HYDROCODONE/ACETAMINOPHEN 5/325MG TABLET PO PRN ×2 (12:46→18:52)
[2022-01-08] MEDS: HYDRALAZINE HCL 100MG TABLET PO SCH ×2 (15:43→21:41)
[2022-01-08] MEDS ORDERED: ZOLPIDEM TARTRATE 5MG TABLET PO PRN (17:00)
[2022-01-08] MEDS: SEVELAMER CARBONATE 800 MG TABLET PO SCH (18:42)
[2022-01-08] MEDS: GABAPENTIN 300MG CAPSULE PO SCH (21:40)
[2022-01-09] VITALS (17 sets, daily range): BP systolic 149–188; BP diastolic 78–111
[2022-01-09] MEDS: HYDROCODONE/ACETAMINOPHEN 5/325MG TABLET PO PRN ×2 (00:36→10:06)
[2022-01-09] MEDS: HYDRALAZINE HCL 100MG TABLET PO SCH ×3 (05:33→21:24)
[2022-01-09 07:25] LABS: BASOPHILS % 0.3 % (0.0-2.0); EOSINOPHILS % 0.2 % (0.0-5.0); HEMATOCRIT. 26.7 % (36.0-48.0); HEMOGLOBIN. 8.6 g/dL (12.0-16.0); LYMPHOCYTES % 17.3 % (20.0-50.0); MEAN CORPUSCULAR HEMOGLOBIN 29.8 pg (28.0-32.0); MEAN CORPUSCULAR VOLUME 92.2 fL (81.0-99.0); MEAN PLATELET VOLUME 8.9 fl (7.4-10.4); MONOCYTES % 11.4 % (2.0-8.0); NEUTROPHILS % 70.8 % (40.0-76.0); PLATELET 209 x1000/uL (130-400); RED CELL DISTRIBUTION WIDTH 17.8 % (11.6-14.6)
[2022-01-09] MEDS: DOCUSATE SODIUM 250MG CAPSULE PO SCH (08:53)
[2022-01-09] MEDS: SEVELAMER CARBONATE 800 MG TABLET PO SCH ×3 (08:53→17:56)
[2022-01-09] MEDS: METOPROLOL SUCCINATE 50MG ER TABLET PO SCH (08:54)
[2022-01-09] MEDS: APIXABAN 2.5 MG TABLET PO SCH ×2 (08:54→17:56)
[2022-01-09] MEDS: CINACALCET HCL 60MG TABLET PO SCH (08:54)
[2022-01-09] MEDS: FOLIC ACID/VITAMIN B COMP W-C TABLET PO SCH (08:55)
[2022-01-09] MEDS: AMLODIPINE 10MG TABLET PO SCH (08:55)
[2022-01-09] MEDS ORDERED: APIXABAN 2.5 MG TABLET PO SCH (09:00)
[2022-01-09] MEDS ORDERED: CALCITRIOL 0.25MCG CAPSULE PO SCH (09:00)
[2022-01-09] MEDS: HYDROCODONE/ACETAMINOPHEN 10/325MG TABLET PO PRN (15:44)
[2022-01-09] MEDS: CLONIDINE 0.1MG TABLET PO SCH ×2 (15:44→21:23)
[2022-01-09] MEDS: GABAPENTIN 300MG CAPSULE PO SCH (21:23)
[2022-01-10] VITALS: BP 160/89
[2022-01-10] MEDS: HYDRALAZINE HCL 100MG TABLET PO SCH (06:48)
[2022-01-10] MEDS: CLONIDINE 0.1MG TABLET PO SCH (06:49)
[2022-01-10] MEDS: SEVELAMER CARBONATE 800 MG TABLET PO SCH (06:49)
[2022-01-10 08:00] VITALS: BP 156/70
[2022-01-10 08:44] VITALS: BP 156/77
[2022-01-10 09:07] LABS: ALK PHOS TOTAL 369 IU/L (44-121)
[2022-01-10] MEDS: CINACALCET HCL 60MG TABLET PO SCH (09:17)
[2022-01-10] MEDS: FOLIC ACID/VITAMIN B COMP W-C TABLET PO SCH (09:17)
[2022-01-10] MEDS: DOCUSATE SODIUM 250MG CAPSULE PO SCH (09:17)
[2022-01-10 09:20] VITALS: BP 156/77
[2022-01-10] MEDS: HYDROCODONE/ACETAMINOPHEN 10/325MG TABLET PO PRN (09:20)
[2022-01-10] MEDS: METOPROLOL SUCCINATE 50MG ER TABLET PO SCH (09:20)
[2022-01-10] MEDS: APIXABAN 2.5 MG TABLET PO SCH (09:21)
[2022-01-10] MEDS: AMLODIPINE 10MG TABLET PO SCH (09:21)
[2022-01-10 10:09] LABS: BASOPHILS % 0.7 % (0.0-2.0); EOSINOPHILS % 0.8 % (0.0-5.0); HEMATOCRIT. 27.7 % (36.0-48.0); LYMPHOCYTES % 19.8 % (20.0-50.0); MEAN CORPUSCULAR HEMOGLOBIN 30.1 pg (28.0-32.0); MEAN CORPUSCULAR VOLUME 92.8 fL (81.0-99.0); MEAN PLATELET VOLUME 7.7 fl (7.4-10.4); MONOCYTES % 11.5 % (2.0-8.0); NEUTROPHILS % 67.2 % (40.0-76.0); PLATELET 213 x1000/uL (130-400); RED BLOOD CELL COUNT 2.99 mill/uL (4.2-5.4)
[2022-01-15 04:07] LABS: ALK PHOS BONE FRACTION 76 % (14-68); ALK PHOS INTESTINAL FRACTION 0 % (0-18); ALK PHOS LIVER FRACTION 24 % (18-85)
== END 2022-01-10 10:15 | disposition home or self-care (01) | DRG 425 ==
LOC: ER 17:28 → 8WST 01-08 00:12 → ENRESERV 01-08 03:26
PROVIDERS: ADMIT Internal Medicine; ATTEND Internal Medicine
PROC: 5A1D70Z Performance of Urinary Filtration, Intermittent, Less than 6 Hours Per Day (ICD-10-PCS; principal; 2022-01-07)
PROC: 5A1D70Z Performance of Urinary Filtration, Intermittent, Less than 6 Hours Per Day (ICD-10-PCS; 2022-01-09)
DX: E87.5 Hyperkalemia (principal); I43 Cardiomyopathy in diseases classified elsewhere; I12.0 Hypertensive chronic kidney disease with stage 5 chronic kidney disease or end stage renal disease; N18.6 End stage renal disease; I82.532 Chronic embolism and thrombosis of left popliteal vein; K76.1 Chronic passive congestion of liver; E87.70 Fluid overload, unspecified; E11.22 Type 2 diabetes mellitus with diabetic chronic kidney disease; N25.81 Secondary hyperparathyroidism of renal origin; D64.9 Anemia, unspecified; E66.9 Obesity, unspecified; Z20.822 Contact with and (suspected) exposure to COVID-19; N25.0 Renal osteodystrophy; Z91.15 Patient's noncompliance with renal dialysis; Z68.32 Body mass index [BMI] 32.0-32.9, adult; Z99.2 Dependence on renal dialysis; Z59.00 Homelessness unspecified; Z88.8 Allergy status to other drugs, medicaments and biological substances; Z79.899 Other long term (current) drug therapy; Z79.891 Long term (current) use of opiate analgesic; Z79.01 Long term (current) use of anticoagulants; Z98.891 History of uterine scar from previous surgery; Z90.49 Acquired absence of other specified parts of digestive tract
CPT/HCPCS: 36415; 71045; 80048; 80053; 83735; 83970; 84075; 84080; 84100; 85025; 86706; 87340; 87426; 90935; 93005; 93970; 99291; J0610; J1815; J3490; J7060